=== PATIENT | female | born 1980 | race Caucasian/White ===

== ENCOUNTER 2017-11-20 05:43 | Inpatient (IN) | payer BC ==
[~2017-11-20] VITALS: Ht 165.1 cm; Wt 70.1 kg
[2017-11-20] VITALS (45 sets, daily range): BP systolic 72–136; BP diastolic 36–83; PULSE 55–105; TEMP 96.7–98.3; O2SAT 100
[~2017-11-20 05:43] MED LIST: FLEXERIL 1010 MG/TAB PO; MOTRIN 800800 MG/TAB PO; MULTI VITAMINS1 TAB PO; NO HOME MEDICATIONS; NORCO 325 MG-51 TAB PO; PERCOCET 325 MG1 TA2 PO; PRENATAL1 TA1 PO
[2017-11-20 06:55] LABS: BASO % 0.3 % (0.0-2.0); EOS % 0.6 % (0-4.0); GRAN # 3.8 (1.4-6.5); HEMOGLOBIN 12.2 g/dl (12.5-16.0); LYMPH % 31.3 % (20.0-51.0); MEAN CELL VOLUME 90 fl (80.0-100.0); MEAN CORPUSCULAR HEMOGLOBIN 31 pg (27.0-31.0); MEAN CORPUSCULAR HGB CONC 35 g/dl (33.0-37.0); MEAN PLATELET VOLUME 11.6 fl (7.4-10.4); MONO # 0.5 (0.1-0.6); MONO % 8.2 % (1.7-9.3); PLATELET COUNT 176 K/mm3 (130-400); RED BLOOD COUNT 3.91 M/mm3 (4.10-5.30); REDCELL DISTRIBUTION WIDTH-CV 12.3 % (11.5-14.5)
[2017-11-20 06:56] LABS: HEMATOCRIT 35.2 % (37.0-47.0)
[2017-11-20 16:59] LABS: BASO % 0.1 % (0.0-2.0); GRAN # 11.6 (1.4-6.5); GRAN % 86.9 % (42.2-75.2); LYMPH # 0.9 (1.2-3.4); LYMPH % 6.5 % (20.0-51.0); MEAN CELL VOLUME 91 fl (80.0-100.0); MEAN CORPUSCULAR HGB CONC 34 g/dl (33.0-37.0); MEAN PLATELET VOLUME 11.2 fl (7.4-10.4); MONO # 0.8 (0.1-0.6); PLATELET COUNT 149 K/mm3 (130-400); RED BLOOD COUNT 2.52 M/mm3 (4.10-5.30); REDCELL DISTRIBUTION WIDTH-CV 12.4 % (11.5-14.5)
[2017-11-20 17:02] LABS: HEMOGLOBIN 7.9 g/dl (12.5-16.0); MEAN CORPUSCULAR HEMOGLOBIN 31 pg (27.0-31.0)
[2017-11-20 20:28] LABS: HEMATOCRIT 16.2 % (37.0-47.0); HEMOGLOBIN 5.7 g/dl (12.5-16.0)
[2017-11-21] VITALS (296 sets, daily range): BP systolic 107–120; BP diastolic 58–76; PULSE 64–100; TEMP 98–99; O2SAT 79–100
[2017-11-21 09:22] LABS: BASO % 0.2 % (0.0-2.0); GRAN # 14.9 (1.4-6.5); GRAN % 86.2 % (42.2-75.2); LYMPH # 1.3 (1.2-3.4); LYMPH % 7.4 % (20.0-51.0); MEAN CELL VOLUME 87 fl (80.0-100.0); MEAN CORPUSCULAR HGB CONC 36 g/dl (33.0-37.0); MEAN PLATELET VOLUME 11.4 fl (7.4-10.4); MONO % 5.9 % (1.7-9.3); PLATELET COUNT 118 K/mm3 (130-400); RED BLOOD COUNT 3.04 M/mm3 (4.10-5.30); REDCELL DISTRIBUTION WIDTH-CV 14.4 % (11.5-14.5)
[2017-11-21 09:24] LABS: HEMATOCRIT 26.4 % (37.0-47.0); HEMOGLOBIN 9.6 g/dl (12.5-16.0); MEAN CORPUSCULAR HEMOGLOBIN 32 pg (27.0-31.0)
[2017-11-22 03:45] VITALS: BP 100/70; PULSE 77
[2017-11-22 08:30] VITALS: BP 118/58; PULSE 73; TEMP 98.7
[2017-11-22 19:50] VITALS: BP 117/49; PULSE 85; TEMP 98.1
[2017-11-23 08:30] VITALS: BP 116/68; PULSE 81; TEMP 98.4
[2017-11-23] MEDS ORDERED: IBU800 M1 PO (09:39)
[2017-11-23] MEDS ORDERED: NORCO 325 MG-51 TAB PO (09:42)
[2017-11-23] MEDS ORDERED: MACROBID 1100 MG/CAP PO (09:43)
== END 2017-11-23 11:20 | disposition home or self-care (01) | DRG 765 ==
LOC: ICU 05:43 → OB 05:43 → LDR 07:38 → ICU 22:16 → OB 11-21 09:33
PROVIDERS: Obstetrics & Gynecology; Urology
PROC: 0TQB0ZZ Repair Bladder, Open Approach (ICD-10-PCS; 2017-11-20)
PROC: 0TQB0ZZ Repair Bladder, Open Approach (ICD-10-PCS; 2017-11-20)
PROC: 0TCB0ZZ Extirpation of Matter from Bladder, Open Approach (ICD-10-PCS; 2017-11-20)
PROC: 10D00Z1 Extraction of Products of Conception, Low, Open Approach (ICD-10-PCS; principal; 2017-11-20 21:00)
DX: O34.211 Maternal care for low transverse scar from previous cesarean delivery (principal); N99.72 Accidental puncture and laceration of a genitourinary system organ or structure during other procedure; D62 Acute posthemorrhagic anemia; Z3A.39 39 weeks gestation of pregnancy; Z37.0 Single live birth; O90.81 Anemia of the puerperium
CPT/HCPCS: J0690; J1580; J1885; J1940; J2175; J2250; J2270; J2370; J2405; J2590; J2704; J2710; J2765; J3010; J7030; J7120; P9016

== ENCOUNTER → 2017-12-04 | Outpatient (CLI) | payer BC ==
[~2017-12-04] MED LIST changes: +IBU800 M1 PO; +MACROBID 1100 MG/CAP PO
== END ==
LOC: COL.RAD 09:52
DX: N99.71 Accidental puncture and laceration of a genitourinary system organ or structure during a genitourinary system procedure (principal); R39.0 Extravasation of urine
CPT/HCPCS: Q9967